=== PATIENT | female | born 1965 | race Two or more races ===

== ENCOUNTER 2019-10-04 19:22 | Inpatient (IN) | payer OTHER ==
[~2019-10-04] VITALS: Ht 147.3 cm; Wt 58.1 kg
[2019-10-04] MEDS ORDERED: PIPERACILLIN/TAZOBACTAM/D5W 50 ML IV ONE (19:38)
[2019-10-04] MEDS ORDERED: PIPERACILLIN SODIUM/TAZOBACTAM 3.375 G in IV DEXTROSE 5% 50 ML IV ONE (19:45)
[2019-10-04] MEDS ORDERED: IV NORMAL SALINE 1000 ML BAG IV ONE (19:45)
[2019-10-04 19:54] LABS: BASOPHILS % (AUTO) 0.1 % (0.0-2.0); EOSINOPHILS % (AUTO) 0.1 % (0.0-7.0); HEMATOCRIT 38.1 % (31.2-41.9); HEMOGLOBIN 12.6 g/dL (10.9-14.3); LYMPHOCYTES # (AUTO) 1.2 K/uL (20.0-40.0); MEAN CORPUSCULAR HGB CONC 33 g/dL (32.3-35.6); MEAN CORPUSCULAR VOLUME 90.9 fL (75.5-95.3); MONOCYTES # (AUTO) 0.1 K/uL (2.0-10.0); MONOCYTES % (AUTO) 1.2 % (0.0-11.0); NEUTROPHILS # (AUTO) 10.4 K/uL (1.8-8.9); NEUTROPHILS % (AUTO) 88.6 % (38.5-71.5); PLATELET COUNT (AUTO) 277 K/uL (179-408); RED BLOOD CELL COUNT(AUTO) 4.19 MIL/uL (3.63-4.92); WHITE BLOOD COUNT (AUTO) 11.7 K/uL (3.8-11.8)
[2019-10-04 20:06] LABS: CREATININE 0.7 mg/dL (0.6-1.3); POTASSIUM 3.9 mmol/L (3.5-5.1)
[2019-10-04 20:11] LABS: BILIRUBIN,DIRECT 0.1 mg/dL (0.0-0.2); BILIRUBIN,TOTAL 0.5 mg/dL (0.2-1.0); TOTAL PROTEIN, SERUM 6.4 g/dL (6.4-8.2)
[2019-10-04 20:20] LABS: *BILIRUBIN,URIN NEGATIVE (NEGATIVE); *COLOR,URINE YELLOW (YELLOW); *KETONES,URINE NEGATIVE (NEGATIVE); *UROBILINOGEN,URINE 0.2 E.U./dl (NORMAL); LEUKOCYTE ESTERASE ,URINE NEGATIVE (NEGATIVE); NITRITE, URINE NEGATIVE (NEGATIVE); PH,URINE 6.5 (5.0-8.0); UGLUCOSE TRACE (NEGATIVE)
[2019-10-04 20:26] LABS: *BLOOD, URINE TRACE (NEGATIVE); *CLARITY,URINE SLIGHTLY HAZY (CLEAR)
[2019-10-04 20:27] LABS: BACTERIA,URINE FEW /HPF (NONE SEEN)
[2019-10-04 20:28] LABS: MUCUS,URINE FEW /LPF (0-FEW); SQUAMOUS EPITHELIAL CELL,UR MODERATE /HPF (NONE SEEN)
--- NOTE | 2019-10-04 21:22 | NUR ---
[facility] speaking to Dr. Ritter on telephone.
[2019-10-04] MEDS ORDERED: HYDROMORPHONE 1 MG/1 ML DISP.SYRIN ONE (21:37)
[2019-10-04] MEDS ORDERED: ONDANSETRON 4 MG/2 ML VIAL ONE (21:37)
[2019-10-04] MEDS ORDERED: HYDROMORPHONE 1 MG/1 ML DISP.SYRIN IV ONE (21:45)
[2019-10-04] MEDS ORDERED: ONDANSETRON 4 MG/2 ML VIAL IV ONE (21:45)
--- NOTE | 2019-10-04 22:35 | NUR ---
Dr. Ritter speaking to Dr. Dipesh Lynne on telephone. Pt. admitted to Med/Surg. Belongs List completed. MRSA swab done.
[2019-10-04 23:00] VITALS: BP 148/90
--- NOTE | 2019-10-04 23:00 | NUR ---
PATIENT ARRIVED ON UNIT VIA GURNEY. ALERT AND ORIENTED X 4. [place] SPEAKING, BUT ABLE TO UNDERSTAND SOME JAPANESE. C/O PAIN IN ABDOMEN. DRAIN FROM CHOLECYSTECTOMY IN RIGHT LOWER ABDOMEN. PREVIOUS EMPTED BY ER NURSE. DRAIN COVERED WITH GAUZE PAD. NO LEAKAGE. TWO LAPAROSCOPIC INCISIONS IN MID ABDOMEN WITH STERI STRIPS OVER IT. BATHROOMS NEED MET WITH BEDPAN. WILL CONTINUE TO MONITOR.
[2019-10-04] MEDS ORDERED: ACETAMINOPHEN 650 MG SUPP.RECT RC PRN (23:45)
[2019-10-04] MEDS: IV D5/ 0.9% NACL 1,000 ML IV PRN (23:57)
[2019-10-05] MEDS: HYDROMORPHONE 1 MG/1 ML DISP.SYRIN IV PRN ×2 (02:52→07:49)
[2019-10-05 05:28] VITALS: BP 130/74
--- NOTE | 2019-10-05 06:19 | NUR ---
Patient slept well. Dilaudid x1 given for pain management. Daughter at bedside for comfort. Will continue to monitor.
[2019-10-05 06:42] LABS: BASOPHILS % (AUTO) 0.2 % (0.0-2.0); EOSINOPHILS % (AUTO) 0.1 % (0.0-7.0); HEMATOCRIT 34.8 % (31.2-41.9); HEMOGLOBIN 11.5 g/dL (10.9-14.3); LYMPHOCYTES # (AUTO) 1.5 K/uL (20.0-40.0); LYMPHOCYTES % (AUTO) 19.4 % (20.5-51.5); MEAN CORPUSCULAR HEMOGLOBIN 30.1 uug (24.7-32.8); MEAN CORPUSCULAR HGB CONC 33 g/dL (32.3-35.6); MEAN CORPUSCULAR VOLUME 90.8 fL (75.5-95.3); MONOCYTES # (AUTO) 0.6 K/uL (2.0-10.0); MONOCYTES % (AUTO) 7.5 % (0.0-11.0); NEUTROPHILS # (AUTO) 5.4 K/uL (1.8-8.9); NEUTROPHILS % (AUTO) 72.8 % (38.5-71.5); PLATELET COUNT (AUTO) 264 K/uL (179-408); RED BLOOD CELL COUNT(AUTO) 3.83 MIL/uL (3.63-4.92)
[2019-10-05 07:01] LABS: BILIRUBIN,TOTAL 0.4 mg/dL (0.2-1.0); CREATININE 0.6 mg/dL (0.6-1.3); MAGNESIUM 1.8 mg/dL (1.8-2.4); PHOSPHOROUS 3.4 mg/dL (2.5-4.9); POTASSIUM 4.4 mmol/L (3.5-5.1); TOTAL PROTEIN, SERUM 5.8 g/dL (6.4-8.2)
[2019-10-05 07:19] LABS: WHITE BLOOD COUNT (AUTO) 7.5 K/uL (3.8-11.8)
--- NOTE | 2019-10-05 07:30 | NUR ---
Received patient in Bed, awake and verbally responsive. No signs of distress noted. No SOB. On Oxygen at 2LPM via Nasal cannula. No complain of Pain/discomfort noted. INO drain is suctioning with bloody drainage. kept clean and comfortable. Will continue to monitor.
[2019-10-05 07:45] VITALS: BP 126/69
[2019-10-05] MEDS: ONDANSETRON 4 MG/2 ML VIAL IV PRN ×2 (07:49→15:03)
[2019-10-05] MEDS: PANTOPRAZOLE SODIUM 40 MG VIAL IV SCH (08:51)
[2019-10-05] MEDS: PIPERACILLIN/TAZOBACTAM/D5W 3.375 G in PREMIXED 1 EACH IV SCH ×2 (11:53→20:34)
[2019-10-05] MEDS ORDERED: PIPERACILLIN SODIUM/TAZOBACTAM 3.375 G in IV DEXTROSE 5% 50 ML IV SCH (12:00)
[2019-10-05 12:21] VITALS: BP 114/66
[2019-10-05] MEDS ORDERED: PANT40TA4 PO (13:54)
[2019-10-05] MEDS ORDERED: METR-147 PO (13:54)
[2019-10-05] MEDS ORDERED: ONDA4TAB11 PO (13:54)
[2019-10-05] MEDS ORDERED: CIPR500T5 PO (13:54)
[2019-10-05] MEDS: IV D5/ 0.9% NACL 1,000 ML IV PRN (14:58)
[2019-10-05 16:18] VITALS: BP 137/70
--- NOTE | 2019-10-05 18:42 | NUR ---
Patient in Bed, awake and verbally responsive. No signs of distress noted. No SOB. Pain medication given as ordered. IVF infusing well to Left hand, INO drain with output of 20ml at 0900 and 35 at 1800, patient haven't pass gas yet, encouraged to walk. Seen by Hortencia MADDEN with New Order of Diet for Dinner , Low fat diet, and will be NPO after midnight. Patient will have ERCP at [facility] at 0700. Family is aware. All needs attended and met. Kept clean and comfortable. Will endorse to Oncoming Nurse.
[2019-10-05] MEDS ORDERED: [UNRECOGNIZED DRUG - MIXTURE] (18:44)
[2019-10-05] MEDS ORDERED: PANT40VI IV (18:44)
[2019-10-05] MEDS ORDERED: PIPE3.379 IV (18:44)
[2019-10-05] MEDS ORDERED: ONDA4VIA23 IV (18:44)
[2019-10-05] MEDS ORDERED: HYDR1DIS2 IV (18:44)
[2019-10-05] MEDS ORDERED: ACET650S24 RC (18:44)
--- NOTE | 2019-10-05 20:00 | NUR ---
PATIENT RECEIVED INTO CARE SITTING UP IN BED WITH FAMILY AT BEDSIDE. PATIENT HAS NO COMPLAINTS OF PAIN OR DISCOMFORT AT THIS TIME AND THERE ARE NO SIGNS/SYMPTOMS OF ACUTE DISTRESS OR DISCOMFORT NOTED OR OBSERVED BY NURSE. ALL SAFETY AND FALL PRECAUTION MEASURES ARE IN PLACE. CALL LIGHT AND PERSONAL ITEMS ARE WITHIN REACH AT ALL TIMES. WILL CONTINUE TO MONITOR AND ASSES.
[2019-10-05 20:30] VITALS: BP 134/83
[2019-10-05] MEDS ORDERED: PIPERACILLIN SODIUM/TAZO 3.375 GM VIAL ONE (22:31)
[2019-10-06] MEDS: PIPERACILLIN/TAZOBACTAM/D5W 3.375 G in PREMIXED 1 EACH IV SCH ×3 (04:17→20:15)
[2019-10-06 05:41] VITALS: BP 130/80
--- NOTE | 2019-10-06 06:00 | NUR ---
Patient slept throughout night with no complaints of pain or discomfort. All prescribed IV antibiotics provided as ordered and tolerated well, with no adverse side effects noted or observed All safety and fall precaution measures remain in place. Call light and personal items remain within reach at all times.
--- NOTE | 2019-10-06 06:05 | NUR ---
Patient picked up by Mita to be transported to [facility] for scheduled ERCP.
[2019-10-06] MEDS: PANTOPRAZOLE SODIUM 40 MG VIAL IV SCH (09:00)
--- NOTE | 2019-10-06 15:08 | NUR ---
pt received back from [facility] via ambulances in stable condition.vs are stable family at bed side ,call light with in reach
[2019-10-06 15:10] VITALS: BP 117/68
[2019-10-06] MEDS: ONDANSETRON 4 MG/2 ML VIAL IV PRN (16:51)
--- NOTE | 2019-10-06 20:00 | NUR ---
AWAKE,ALERTX3 FAMILY AT BEDSIDE, DR GONGORA CAME ,SEE PATIENT. ABDOMEN SOFT.DRAINAGE WITH SEROSANGUINESS OUPUTNO COMPLAINTS MADE.
[2019-10-06 20:59] VITALS: BP 112/69
[2019-10-07] MEDS: IV D5/ 0.9% NACL 1,000 ML IV PRN ×2 (01:06→16:15)
[2019-10-07] MEDS: PIPERACILLIN/TAZOBACTAM/D5W 3.375 G in PREMIXED 1 EACH IV SCH ×3 (03:31→20:05)
[2019-10-07 05:52] VITALS: BP 99/65
[2019-10-07 06:48] LABS: BASOPHILS % (AUTO) 0.5 % (0.0-2.0); EOSINOPHILS # (AUTO) 0.2 K/uL (0.0-0.7); EOSINOPHILS % (AUTO) 3.7 % (0.0-7.0); HEMATOCRIT 31.8 % (31.2-41.9); HEMOGLOBIN 10.6 g/dL (10.9-14.3); LYMPHOCYTES # (AUTO) 1.9 K/uL (20.0-40.0); LYMPHOCYTES % (AUTO) 29.5 % (20.5-51.5); MEAN CORPUSCULAR HEMOGLOBIN 29.7 uug (24.7-32.8); MEAN CORPUSCULAR HGB CONC 33 g/dL (32.3-35.6); MEAN CORPUSCULAR VOLUME 89.4 fL (75.5-95.3); MONOCYTES # (AUTO) 0.5 K/uL (2.0-10.0); MONOCYTES % (AUTO) 7.5 % (0.0-11.0); NEUTROPHILS # (AUTO) 3.8 K/uL (1.8-8.9); NEUTROPHILS % (AUTO) 58.8 % (38.5-71.5); PLATELET COUNT (AUTO) 215 K/uL (179-408); RED BLOOD CELL COUNT(AUTO) 3.56 MIL/uL (3.63-4.92); WHITE BLOOD COUNT (AUTO) 6.4 K/uL (3.8-11.8)
[2019-10-07 07:11] LABS: BILIRUBIN,TOTAL 0.6 mg/dL (0.2-1.0); CREATININE 0.5 mg/dL (0.6-1.3); MAGNESIUM 1.9 mg/dL (1.8-2.4); PHOSPHOROUS 2.5 mg/dL (2.5-4.9); POTASSIUM 3.6 mmol/L (3.5-5.1); TOTAL PROTEIN, SERUM 5.5 g/dL (6.4-8.2)
[2019-10-07 08:00] VITALS: BP 108/70
[2019-10-07] MEDS: PANTOPRAZOLE SODIUM 40 MG VIAL IV SCH (09:41)
[2019-10-07 11:57] VITALS: BP 121/74
[2019-10-07] MEDS ORDERED: FENTANYL CITRATE 100 MCG/2 ML AMPUL ONE (14:38)
[2019-10-07] MEDS: HYDROMORPHONE 1 MG/1 ML DISP.SYRIN IV PRN (16:10)
[2019-10-07 16:20] VITALS: BP 128/71
--- NOTE | 2019-10-07 19:30 | NUR ---
Received patient awake and alert in bed, Kenyan speaking, son at bedside. Patient is A/Ox3. no acute distress noted. No complaints of pain or SOB at this time. Patient noted with INO drainage to the right side of abdomen with drainage of 3mL of serosanguineous liquid and 2 surgical sites to medial abdomen with steri strips and transparent dressing, no active bleeding noted. Safety measures initiated. Bed is low and locked, call light within reach Will continue to monitor.
[2019-10-07 20:23] VITALS: BP 100/57
[2019-10-07] MEDS ORDERED: PROPOFOL 200 MG/20 ML BOTTLE IV ONE (21:02)
[2019-10-08] MEDS: PIPERACILLIN/TAZOBACTAM/D5W 3.375 G in PREMIXED 1 EACH IV SCH ×2 (04:08→11:02)
[2019-10-08 05:16] VITALS: BP 109/64
[2019-10-08] MEDS: IV D5/ 0.9% NACL 1,000 ML IV PRN (05:44)
[2019-10-08 06:54] LABS: BILIRUBIN,TOTAL 0.5 mg/dL (0.2-1.0); CREATININE 0.5 mg/dL (0.6-1.3); MAGNESIUM 1.8 mg/dL (1.8-2.4); PHOSPHOROUS 2.6 mg/dL (2.5-4.9); POTASSIUM 3.5 mmol/L (3.5-5.1); TOTAL PROTEIN, SERUM 5.5 g/dL (6.4-8.2)
[2019-10-08 06:56] LABS: BASOPHILS % (AUTO) 0.4 % (0.0-2.0); EOSINOPHILS # (AUTO) 0.3 K/uL (0.0-0.7); EOSINOPHILS % (AUTO) 4.6 % (0.0-7.0); HEMATOCRIT 30.8 % (31.2-41.9); HEMOGLOBIN 10.3 g/dL (10.9-14.3); LYMPHOCYTES # (AUTO) 2.1 K/uL (20.0-40.0); LYMPHOCYTES % (AUTO) 33.1 % (20.5-51.5); MEAN CORPUSCULAR HEMOGLOBIN 30.3 uug (24.7-32.8); MEAN CORPUSCULAR HGB CONC 33 g/dL (32.3-35.6); MEAN CORPUSCULAR VOLUME 90.8 fL (75.5-95.3); MONOCYTES # (AUTO) 0.4 K/uL (2.0-10.0); MONOCYTES % (AUTO) 6.2 % (0.0-11.0); NEUTROPHILS # (AUTO) 3.5 K/uL (1.8-8.9); NEUTROPHILS % (AUTO) 55.7 % (38.5-71.5); PLATELET COUNT (AUTO) 213 K/uL (179-408); RED BLOOD CELL COUNT(AUTO) 3.39 MIL/uL (3.63-4.92); WHITE BLOOD COUNT (AUTO) 6.3 K/uL (3.8-11.8)
[2019-10-08] MEDS ORDERED: PANTOPRAZOLE SODIUM 40 MG TABLET.DR PO SCH (07:30)
[2019-10-08 11:07] VITALS: BP 124/74
[2019-10-08 15:21] VITALS: BP 118/67
--- NOTE | 2019-10-08 18:00 | NUR ---
pt seen by dr moser drain removed ,
[2019-10-08] MEDS ORDERED: CEPH-570 PO (19:15)
--- NOTE | 2019-10-08 20:00 | NUR ---
RECEIVED PATIENT AWAKE IN BED WITH FAMILY WAITING FOR DISCHARGE. PATIENT IS A/O X4. IRISH SPEAKING. DAUGHTER AT BEDSIDE TO TRANSLATE. VSS. ALL NEEDS ATTENDED. WILL CONTINUE TO MONITOR AND ASSESS.
--- NOTE | 2019-10-08 20:40 | NUR ---
PATIENT DISCHARGED HOME IN STABLE CONDITION VIA PRIVATE CAR. VSS. ALL NEEDS ATTENDED.
== END 2019-10-08 21:03 | disposition home or self-care (01) | DRG 872 ==
LOC: ER 19:24 → MEDSURG3 22:45
PROVIDERS: ADMIT Internal Medicine; ATTEND Internal Medicine
PROC: 0F7D8DZ Dilation of Pancreatic Duct with Intraluminal Device, Via Natural or Artificial Opening Endoscopic (ICD-10-PCS; principal; 2019-10-06)
PROC: 0FPD8DZ Removal of Intraluminal Device from Pancreatic Duct, Via Natural or Artificial Opening Endoscopic (ICD-10-PCS; 2019-10-07)
DX: A41.9 Sepsis, unspecified organism (principal); K80.66 Calculus of gallbladder and bile duct with acute and chronic cholecystitis without obstruction; K82.8 Other specified diseases of gallbladder; G89.18 Other acute postprocedural pain; Z90.710 Acquired absence of both cervix and uterus; K29.70 Gastritis, unspecified, without bleeding; Z90.49 Acquired absence of other specified parts of digestive tract; F17.210 Nicotine dependence, cigarettes, uncomplicated; E66.9 Obesity, unspecified; Z68.26 Body mass index [BMI] 26.0-26.9, adult; R74.0 Nonspecific elevation of levels of transaminase and lactic acid dehydrogenase [LDH]
CPT/HCPCS: 36415; 70030-TC; 71045; 83605; 83690; 83735; 84100; 85025; 85730; 87040; 93005; A4217; A4663; C9113; G0378; J1170; J2405; J2543; J3010; J3490; J7030; J7042; J7050; J7060